=== PATIENT | female | born 1960 | race Caucasian/White ===

== ENCOUNTER 2017-10-16 10:32 | Emergency (ER) | payer BC, OTHER ==
[~2017-10-16] VITALS: Ht 167.6 cm; Wt 65.0 kg
[2017-10-16 10:35] VITALS: Ht 167.6 cm; Wt 65.0 kg
[2017-10-16] MEDS ORDERED: SOD CHLORIDE 0.9% 1,000 ML IV STA (11:11)
[2017-10-16 11:45] LABS: BASOPHIL # 0.1 10^3/ul (0.0-0.1); BASOPHILS % 0.8 % (0.0-2.0); EOSINOPHILS # 0.4 10^3/ul (0.0-0.5); EOSINOPHILS % 4.3 % (0.0-7.0); HEMATOCRIT 44.1 % (37.0-47.0); HEMOGLOBIN 14.5 g/dl (12.0-16.0); LYMPHOCYTES # 3.4 10^3/ul (0.8-2.9); LYMPHOCYTES % 37.2 % (15.0-51.0); MEAN CORPUSCULAR HEMOGLOBIN 30.2 pg (29.0-33.0); MEAN CORPUSCULAR HGB CONC 32.9 g/dl (32.0-37.0); MEAN CORPUSCULAR VOLUME 91.9 fl (82.0-101.0); MEAN PLATELET VOLUME 10.8 fl (7.4-10.4); MONOCYTE # 0.6 10^3/ul (0.3-0.9); MONOCYTES % 6.1 % (0.0-11.0); NEUTROPHIL # 4.6 10^3/ul (1.6-7.5); NEUTROPHILS % 50.5 % (39.0-77.0); PLATELET COUNT 300 10^3/UL (140-415); RED CELL DISTRIBUTION WIDTH 12.4 % (11.5-14.5); WHITE BLOOD COUNT 9.1 10^3/ul (4.8-10.8)
[2017-10-16 12:08] LABS: CALCIUM 9.3 mg/dl (8.4-10.2); CREATININE 1.16 mg/dl (0.44-1.00); POTASSIUM 3.7 mmol/L (3.5-5.1)
--- NOTE | 2017-10-16 12:45 | RADRPT ---
PROCEDURE: CT Brain without contrast. CLINICAL INDICATION: Seizure. TECHNIQUE: A CT of the brain was performed on multidetector high-resolution CT scanner utilizing a xial sections from the skull base through the vertex without contrast. The scan was reviewed in sof t tissue brain and high frequency resolution bone algorithm windows. Images were reviewed on a high -resolution PACS workstation. One or more the following does reduction techniques were utilized: Aut omated exposure control, adjustment of the mA/ or kV according to patient's size, or use of iterativ e reconstruction technique. The exam CTDI = 44.46 mGy and the DLP = 720.23 mGy-cm. DICOM images are available. COMPARISON: None available. FINDINGS: The ventricles and sulci are mildly prominent indicative of volume loss. There is no intracranial h emorrhage, mass effect or midline shift. No abnormal intra-axial or extra-axial fluid collections a re seen. The nava/white matter differentiation is preserved. There are mild scattered foci of hypoattenuation in the white matter, which are nonspecific in etiol ogy but likely reflect chronic small vessel ischemic changes. There are mild intracranial vascular calcifications consistent with atherosclerosis. The visualized paranasal sinuses are essentially sangeetha ar. Frontoparietal scalp swelling is noted without underlying skull fracture. IMPRESSION: 1. No acute intracranial hemorrhage, transcortical infarction or mass effect. 2. Mild intracranial atherosclerosis and chronic small vessel ischemic changes. 3. Mild generalized cerebral volume loss. 4. Frontoparietal scalp swelling without underlying skull fracture. RPTAT: HH .Marichuy Everett MD, MD Date Time Electronically viewed and signed by .Marichuy Everett MD, MD on 10/16/2017 12:45 .N/
--- NOTE | 2017-10-16 13:01 | ERD ---
ER Documentation Chief Complaint Chief Complaint BIB RA FOR EVAL OF SEIZURE PT A&OX4 ON ARRIVAL. HX OF SZ TAKES TOPAMAX HPI This is a 57-year-old female with a history of seizure disorder who was on Topamax who presents to the ER after being brought in by ambulance for evaluation of a seizure she had while she was at work. The seizure was not witnessed however this patient states that her last seizure was 1 year ago. She is taking Topamax as prescribed. Witnesses that found her after stated that she was slightly confused. She has no pain at this time and no complaints at this time ROS All systems reviewed and are negative except as per history of present illness. Allergies Allergies: Coded Allergies: No Known Allergy (Unverified , 10/16/17) PMhx/Soc Medical and Surgical Hx: pt denies Surgical Hx Hx Neurological Disorder: Yes (seizures) Hx Alcohol Use: No Hx Substance Use: No Hx Tobacco Use: No Smoking Status: Unknown if ever smoked Physical Exam Vitals Vital Signs Date Time Temp Pulse Resp B/P Pulse Ox O2 Delivery O2 Flow Rate FiO2 10/16/17 10:35 97.9 113 17 128/69 99 Physical Exam INITIAL VITAL SIGNS: Reviewed by me GENERAL: The patient is well developed and appropriate for usual state of health in no apparent distress HEENT: Pupils equal, round, and reactive to light. EOMI. There is no scleral icterus. NECK: C-spine is soft and supple, there is no meningismus. There is no cervical lymphadenopathy. LUNGS: Clear to auscultation bilaterally. There are no rales, wheezes or rhonchi. HEART: Regular rate and rhythm, no murmurs, clicks, rubs or gallops. ABDOMEN: Soft, non-tender, non-distended. There are bowel sounds in all four quadrants. No rebound or guarding. EXTREMITIES: There is no peripheral cyanosis or edema. No focal swelling or erythema. NEUROLOGICAL: The patient moves all four extremities with 5/5 strength. Cranial nerves II - XII are intact. Normal gait. Alert and oriented SKIN: There is no apparent rash or petechiae. HEME/LYMPHATIC: There is no evidence of excessive bruising or lymphedema. PSYCHIATRIC: The patient does not appear anxious or depressed. Result Diagram: 10/16/17 1120 10/16/17 1120 Results 24 hrs Laboratory Tests Test 10/16/17 11:20 10/16/17 12:11 White Blood Count 9.110^3/ul Red Blood Count 4.8010^6/ul Hemoglobin 14.5g/dl Hematocrit 44.1% Mean Corpuscular Volume 91.9fl Mean Corpuscular Hemoglobin 30.2pg Mean Corpuscular Hemoglobin Concent 32.9g/dl Red Cell Distribution Width 12.4% Platelet Count 54342^3/UL Mean Platelet Volume 10.8fl Neutrophils % 50.5% Lymphocytes % 37.2% Monocytes % 6.1% Eosinophils % 4.3% Basophils % 0.8% Nucleated Red Blood Cells % 0.0/100WBC Neutrophils # 4.610^3/ul Lymphocytes # 3.410^3/ul Monocytes # 0.610^3/ul Eosinophils # 0.410^3/ul Basophils # 0.110^3/ul Nucleated Red Blood Cells # 0.010^3/ul Sodium Level 141mmol/L Potassium Level 3.7mmol/L Chloride Level 109mmol/L Carbon Dioxide Level 14mmol/L Anion Gap 22 Blood Urea Nitrogen 13mg/dl Creatinine 1.16mg/dl Glucose Level 107mg/dl Calcium Level 9.3mg/dl Bedside Glucose 92mg/dL Current Medications Medications (Trade) Dose Ordered Sig/Emi Route PRN Reason Start Time Stop Time Status Last Admin Dose Admin Sodium Chloride (NS) 1,000 ml @ 1,000 mls/hr Q1H STAT IV 10/16/17 11:11 10/16/17 12:10 DC 10/16/17 11:59 Procedures/MDM CT brain without: 1. No acute intracranial hemorrhage, transcortical infarction or mass effect. 2. Mild intracranial atherosclerosis and chronic small vessel ischemic changes. 3. Mild generalized cerebral volume loss. 4. Frontoparietal scalp swelling without underlying skull fracture. This 57-year-old female presents to the ER for evaluation of seizure. She does have a history of seizures and is on Topamax. She has had no seizure activity since being here in the emergency room, lab work is within normal limits except for mild deficiency. The patient had a CT the brain which is normal shows no acute intracranial pathology. This patient is alert oriented to person place time with no focal neurological deficits. She will be discharged at this time with instructions to follow-up with her neurologist. Departure Diagnosis: Primary Impression: Seizure disorder Condition: Fair BORHANI,KOROSH DO Oct 16, 2017 13:01
[2017-10-16 13:06] VITALS: BP 128/70; PULSE 85; RESP 20; TEMP 98.1
== END 2017-10-16 13:11 | disposition home or self-care (01) ==
LOC: E/R 10:32
DX: G40.909 Epilepsy, unspecified, not intractable, without status epilepticus (principal); R40.2142 Coma scale, eyes open, spontaneous, at arrival to emergency department; R40.2252 Coma scale, best verbal response, oriented, at arrival to emergency department; R40.2362 Coma scale, best motor response, obeys commands, at arrival to emergency department; R00.2 Palpitations
CPT/HCPCS: 36415; 70450; 80048; 82962; 85025; 93005; 99285; J7030